=== PATIENT | male | born 1960 | race Caucasian/White ===

== ENCOUNTER → 2022-04-26 | Outpatient (CLI) | payer BC ==
--- NOTE | 2022-04-26 16:34 | CT ---
EXAMINATION TYPE: CT sinus wo con CT DLP: 654.8 mGycm, Automated exposure control for dose reduction was used. DATE OF EXAM: 04/26/2022 12:31 PM COMPARISON: CT facial bones 12/17/2013. CLINICAL INDICATION:Male, 61 years old with history of J32.9 chronic sinusitis, Chronic sinusitis. CONTRAST: None. TECHNIQUE: Multiple thin axial images were obtained through the paranasal sinuses without the use of IV contrast. Additional coronal and sagittal reformatted images were submitted for evaluation. FINDINGS: Frontal sinuses: Normally developed and aerated. Frontal Recess: Patent with minimal mucosal thickeni ng. Modified [place]-Lowell Score: Right 0 = 0% Opacified, Left 0 = 0% Opacified Maxillary Sinuses: Normally developed and aerated. Modified [place]lee Score: Right 0 = 0% Opacified, Left 0 = 0% Opacified Maxillary Infundibula(OMC): Clear, No Eduardo cells identified. Modified Ol[place]-Lowell Score: Right 0 = Completely patent, Left 0 = Completely patent Ethmoid sinuses: Normally developed and aerated. Ethmoidal notch: Unprotected anterior ethmoidal duarte ry bilaterally. Modified [place]-Lowell Score: Anterior Right 1 = 1-25% Opacified, Left 1 = 1-25% Opacified Posterior Right 1 = 1-25% Opacified, Left 1 = 1-25% Opacified Sphenoid sinuses: Normally developed and aerated. There is sellar sphenoid sinus pneumatization witho ut evidence of dehiscence. No dehiscence of carotid canal. No evidence of optic nerve dehiscence wit hin the sphenoid sinus. No evidence of Onodi cells. Sphenoethmoidal recesses: Patent with minimal mu cosal thickening in the left.. Modified [place]-Haylee Score: Right 0 = 0% Opacified, Left 0 = 0% Opacified. Nasal septum: Within normal limits.. Nasal Turbinates: Within normal limits, mild rightward deviation. Mastoid air cells & middle ears: The air cells are clear. The middle ears are grossly unremarkable. Modified Soft tissues & Brain: Partially seen without gross abnormality. Globes are intact. Other: Cribriform plate demonstrates symmetric Keros classification type 2 cribriform plate. No evidence of bony dehiscence of skull base. Lamina papyracea is intact without evidence of remote orbital fracture or orbital prolapse into the e thmoid sinus. IMPRESSION: 1. No significant mucosal sinus disease. 2. The ostiomeatal units, frontonasal and sphenoethmoidal recesses are patent. 3. Opacification burden of 4/54 on the Modified Olga-Lowell scoring system.
== END | disposition home or self-care (01) ==
LOC: RADCTMAIN 12:12
PROVIDERS: ATTEND Otolaryngology
DX: J32.9 Chronic sinusitis, unspecified (principal)
CPT/HCPCS: 70486

== ENCOUNTER → 2022-04-26 | Outpatient (CLI) | payer BC | END | disposition home or self-care (01) | LOC: LABWHC1 12:38 | PROVIDERS: ATTEND Otolaryngology | DX: J30.89 Other allergic rhinitis (principal) | CPT/HCPCS: 36415 ==

== ENCOUNTER → 2022-09-12 | Outpatient (CLI) | payer BC ==
--- NOTE | 2022-09-12 12:31 | P.SLEEP ---
History of Present Illness DATE: 09/12/2022 CONSULTATION/NEW PATIENT EVALUATION HISTORY OF PRESENT ILLNESS/SLEEP-WAKE EVALUATION: 61year old lady gentleman had been evaluated in the sleep center for possible obstructive sleep apnea hypopnea syndrome. Home sleep apnea test which was done several years ago was negative for obstructive sleep apnea hypopnea syndrome. Patient increased his weight on around the 20 pounds since previous sleep test which was done in another institution. SLEEP SCHEDULE: Usually sleep schedule on weekdays from 10 PM until 7 AM, during days off from 10 PM until 8 AM. FALLING ASLEEP: No problems with falling asleep, no TV in bedroom. DURING SLEEP: Patient usually sleeps on the back and side position with loud snoring and awakenings from sleep with nocturia. No history of hypnogogical hallucinations, sleep paralysis, or cataplexy. DURING THE DAY/WAKE STATE: In the morning patient wake up tired, falling asleep during the day. [place] sleepiness scale is 6. He is taking 1 nap around 23 PM. PAST MEDICAL HISTORY: Asthma, prostate CA, depression, sinuses problems and nasal problems. PAST SURGICAL HISTORY: Status post surgical treatment for nasal septum deviation and sinuses problems, prostatectomy in 2018. MEDICATIONS: Flonase, Celexa. SOCIAL HISTORY: Negative for smoking, alcohol consumption occasional. FAMILY HISTORY: Hypertension, heart problems, stroke, snoring, diabetes. REVIEW OF SYSTEMS: Loud snoring, awakenings from sleep, sleepiness during the day. No fevers. No double vision. No recent chest pain. No shortness of breath. No abdominal pain. No bleeding episodes. No blood in urine. No seizure episodes. PHYSICAL EXAMINATION: GENERAL: A pleasant patient without any distress. VITAL SIGNS: BP 133/81 , HR 68 , RR 16 , weight 235.8 pounds, height 5 foot 11- 3/4 inches, body mass index 32.1 . HEENT: PERRLA, EOMI. Evaluation of oropharynx showed tongue protrudes midline, low position of soft palate Mallampati 3, wide pillars. NECK: Supple. No JVD. Thyroid is not palpable. 17 inches in circumference. LUNGS: Clear to percussion and to auscultation. Good air exchange. No wheezing or rhonchi. HEART: S1, S2 regular. No murmurs, gallops or rubs. ABDOMEN: Soft and nontender. Bowel sounds are present. No organomegaly appreciated. EXTREMITIES: No clubbing or cyanosis. BUFF WHEEL FABRICATOR: Awake, alert, and oriented x3. Cranial nerves 2 to 7 intact. There is no fasciculation or atrophy noted. No focal deficits observed. ASSESSMENT: 1. Loud snoring, small oropharyngeal air space, patient take naps afternoon, wide neck 17 inches. Home sleep apnea test in another institution several years ago was negative. Patient increased his weight since that time. Obstructive sleep apnea hypopnea syndrome. 2. Mild obesity. 3 status post the surgery for nasal septum deviation and sinuses problems. 4. History of depression. 5 history of asthma. 6. History of prostate cancer, status post prostatectomy in 2018. PLAN: 1. Polysomnography for evaluation of patient's breathing during sleep. 2. CPAP/BiPAP titration if sleep study confirms obstructive sleep apnea- hypopnea syndrome. 3. Preferable position during sleep on the side. 4. No driving if patient feels any sleepiness. Patient is aware of civil and criminal liability for unsafe driving. 5. Sleep hygiene with regular sleep time for at least 7.5-8 hours. 6. Watching weight. Thank you very much for referring this patient for consultation. Sincerely, Arnel Hampton MD, PhD, FAASM. Diplomat of [place] [employer], Sleep Medicine Board by [place] [employer] [place] [employer] Contract Designer of [facility] [place] Sleep Note - Sleep Note Sleep Note: Temperature: Pulse Rate: Respiratory Rate: Blood Pressure: SpO2: Height: Weight: BMI: Neck Circumference:
== END ==
LOC: SLEEP 11:18
PROVIDERS: ATTEND Internal Medicine
DX: G47.33 Obstructive sleep apnea (adult) (pediatric) (principal); E66.01 Morbid (severe) obesity due to excess calories; F32.A Depression, unspecified; J45.909 Unspecified asthma, uncomplicated; Z85.46 Personal history of malignant neoplasm of prostate; Z90.79 Acquired absence of other genital organ(s); Z99.89 Dependence on other enabling machines and devices
CPT/HCPCS: 99211

== ENCOUNTER → 2023-02-13 | Outpatient (CLI) | payer BC ==
--- NOTE | 2023-02-13 15:25 | P.PN ---
Subjective DATE: 02/13/2023 FOLLOW UP VISIT. Patient with obstructive sleep apnea hypopnea syndrome return to sleep center for follow-up visit. Recently patient had sleep study which documented obstructive sleep apnea hypopnea syndrome. Patient was initiated on PAP therapy and today is first visit after treatment was started. Patient was able to use PAP equipment every night for the whole night. The patient does not have significant problems with the mask, PAP pressure and humidification. [place] sleepiness scale is 5, which is normal. I checked information from PAP unit and explaining to the patient in details. PAP unit pressure 5-17, average 11.6 cm H2O. Usage is 97% and 87 % for more then 4 hours, average 7 hours per night. Leak is 3.6 l/m, which is in acceptable range. Apnea Hypopnea Index is 1.0, which is normal. MEDICATIONS:1. Flonase 2. Celexa During physical exam: GENERAL: A pleasant patient without any distress. VITAL SIGNS: BP 121/68, HR 79, RR 20 , weight 245.6, temperature 98 point, oxygen saturation at room air 96% . HEENT: PERRLA, EOMI.low position of soft palate, Mallapati 3 . NECK: Supple. No JVD. LUNGS: Clear to percussion and to auscultation. Good air exchange. No wheezing or rhonchi. HEART: S1, S2 regular. ABDOMEN: Soft and nontender.[] EXTREMITIES: No clubbing or cyanosis. FAMILY CONSULTANT: Awake, alert, and oriented x3. No focal deficit. Impressions: 1. Obstructive sleep apnea-hypopnea syndrome. Patient demonstrated great compliance with treatment, benefiting from treatment. 2. Mild obesity, patient increased his weight on 10 pounds comparing to the previous visit. 3. History of asthma. 4. History of prostate CA, status post prostatectomy in 2018. 5. Status post surgical treatment for nasal septum deviation and sinuses problems. 6. History of depression. Plan: 1. Continue using PAP equipment every night for the whole night. 2. To change air filter at least 1-2 times per month. 3. PAP unit should stay lower then position of the head. 4. Advised patient to remove all remaining water from humidifier canister daily and make it dry after each usage. Refill canister with fresh distilled water before each usage. 5. Sleep hygiene with regular time in bed for at least 8 hours. 6. Precautions related to driving. No driving if feel any sleepiness. 7. I will maintain prescription for PAP supplies including mask, tube, filters. 8. Follow up visit in 6 months or earlier if patient has any problems. 9. Watching and losing weight. Thank you very much for allowing me to participate in the management of your patient. Arnel Hampton MD, PhD, FAASM. Diplomat of [place] [employer], Sleep Medicine Board by [place] [employer] Medical Insurance Verifier of [facility] [place]
== END | disposition home or self-care (01) ==
LOC: SLEEP 14:04
PROVIDERS: ATTEND Internal Medicine
DX: G47.33 Obstructive sleep apnea (adult) (pediatric) (principal); E66.9 Obesity, unspecified; Z85.46 Personal history of malignant neoplasm of prostate; Z90.79 Acquired absence of other genital organ(s); Z87.09 Personal history of other diseases of the respiratory system; Z98.890 Other specified postprocedural states; Z86.59 Personal history of other mental and behavioral disorders; Z99.89 Dependence on other enabling machines and devices

== ENCOUNTER → 2023-08-28 | Outpatient (CLI) | payer BC ==
--- NOTE | 2023-08-28 17:08 | P.PN ---
Subjective DATE: 08/28/2023 FOLLOW UP VISIT. Patient with obstructive sleep apnea hypopnea syndrome return to sleep center for follow-up visit. Information from previous visit have been reviewed. Patient is using PAP equipment every night for the whole night, getting PAP supplies in time. The patient does not have significant problems with the mask, PAP unit and humidification. [place] sleepiness scale is 2, which is normal. I checked information from PAP unit and discussed it with patient in details. PAP unit pressure 5-17, average 10.9 cm H2O. Usage is 100 % for more then 4 hours, average 8 hours per night. Leak is 5.8 l/m, which is in acceptable range. Apnea Hypopnea Index is 0.8, which is normal. MEDICATIONS:1. Flonase 2. Celexa 10 mg once a day 3. Glucosamine 4. Vitamin C During physical exam: GENERAL: A pleasant patient without any distress. VITAL SIGNS: BP 125/75, HR 72, RR 16 , weight 246.4, temperature 98.0, oxygen saturation at room air 96 % . HEENT: PERRLA, EOMI.low position of soft palate, Mallapati 3 . NECK: Supple. No JVD. LUNGS: Clear to percussion and to auscultation. Good air exchange. No wheezing or rhonchi. HEART: S1, S2 regular. ABDOMEN: Soft and nontender.[] EXTREMITIES: No clubbing or cyanosis. BENDER HAND: Awake, alert, and oriented x3. No focal deficit. Impressions: 1. Obstructive sleep apnea-hypopnea syndrome. Patient demonstrated great compliance with treatment, benefiting from treatment. 2. Mild obesity. 3. History of asthma. 4. Status post prostatectomy in 2018 for prostate cancer. 5. Status post surgical treatment for nasal septum deviation and sinus problems. 6. History of depression. Plan: 1. Continue using PAP equipment every night for the whole night. 2. To change air filter at least 1-2 times per month. 3. PAP unit should stay lower then position of the head. 4. Advised patient to remove all remaining water from humidifier canister daily and make it dry after each usage. Refill canister with fresh distilled water before each usage. 5. Sleep hygiene with regular time in bed for at least 8 hours. 6. Precautions related to driving. No driving if feel any sleepiness. 7. I will maintain prescription for PAP supplies including mask, tube, filters. 8. Watching weight. 9. Follow up visit in 6 months or earlier if patient has any problems. Thank you very much for allowing me to participate in the management of your patient. Arnel Hampton MD, PhD, FAASM. Diplomat of [place] [employer], Sleep Medicine Board by [place] [employer] Fire Patroller of [facility] [place]
== END ==
LOC: 3 N SLEEP 16:30
PROVIDERS: ATTEND Internal Medicine
DX: G47.33 Obstructive sleep apnea (adult) (pediatric) (principal); E66.9 Obesity, unspecified; F32.A Depression, unspecified; J45.909 Unspecified asthma, uncomplicated; Z79.899 Other long term (current) drug therapy; Z85.46 Personal history of malignant neoplasm of prostate; Z90.79 Acquired absence of other genital organ(s); Z98.890 Other specified postprocedural states; Z99.89 Dependence on other enabling machines and devices
CPT/HCPCS: 99212

== ENCOUNTER → 2024-03-25 | Outpatient (CLI) | payer BC ==
--- NOTE | 2024-03-25 17:28 | P.PROGSL ---
Subjective DATE: 03/25/2024 FOLLOW UP VISIT. Patient with obstructive sleep apnea hypopnea syndrome return to sleep center for follow-up visit. Information from previous visit have been reviewed. Patient is using PAP equipment every night for the whole night, getting PAP supplies in time. The patient does not have significant problems with the mask, PAP unit and humidification. [place] sleepiness scale is 4, which is normal. I checked information from PAP unit. PAP unit pressure 5-14, average 10.1 cm H2O. Usage is 97% for more then 4 hours, average 7.5 hours per night. Leak is 1.5 l/m, which is in perfect range. Apnea Hypopnea Index is 0.4, which is normal. MEDICATIONS: Please see below During physical exam: GENERAL: A pleasant patient without any distress. VITAL SIGNS: Please see below, weight 243 pounds, patient lost 3 pounds, BMI 33.8. HEENT: PERRLA, EOMI.low position of soft palate, Mallapati 3 . NECK: Supple. No JVD. LUNGS: Clear to percussion and to auscultation. Good air exchange. No wheezing or rhonchi. HEART: S1, S2 regular. ABDOMEN: Soft and nontender.[] EXTREMITIES: No clubbing or cyanosis. RACECAR DRIVER: Awake, alert, and oriented x3. No focal deficit. Impressions: 1. Obstructive sleep apnea-hypopnea syndrome. Patient demonstrated great compliance with treatment, benefiting from treatment. 2. Mild obesity BMI 33.8, patient lost 3 pounds comparing with previous visit. 3. History of asthma. 4. Status post prostatectomy in 2018 for prostate cancer. 5. History of depression. 6. Status post surgical treatment for nasal septal deviation sinuses problems. Plan: 1. Continue using PAP equipment every night for the whole night. 2. To change air filter at least 1-2 times per month. 3. PAP unit should stay lower then position of the head. 4. Advised patient to remove all remaining water from humidifier canister daily and make it dry after each usage. Refill canister with fresh distilled water before each usage. 5. Sleep hygiene with regular time in bed for at least 8 hours. 6. Precautions related to driving. No driving if feel any sleepiness. 7. I will maintain prescription for PAP supplies including mask, tube, filters. 8. Follow up visit in 6 months or earlier if patient has any problems. 9. Watching and losing weight. Thank you very much for allowing me to participate in the management of your patient. Arnel Hampton MD, PhD, FAASM. Diplomat of [place] [employer], Sleep Medicine Board by [place] [employer] Supervisor of [facility] [place] Objective - Vital Signs Vital Signs: Vital Signs Temp 97.9 F 03/25/24 17:13 Pulse 74 03/25/24 17:13 Resp 16 03/25/24 17:13 BP 146/71 03/25/24 17:13 Pulse Ox 96 03/25/24 17:13 FiO2 Intake & Output 03/24/24 03/25/24 03/25/24 18:59 06:59 18:59 Weight 110.223 kg Home Medications: Home Medications Medication Instructions Recorded Confirmed Type Citalopram Hydrobromide [CeleXA] 10 mg PO DAILY 03/25/24 03/25/24 History Fluticasone Nasal [place] [Flonase See Rx Instructions .ROUTE .COMPLEX 03/25/24 03/25/24 History Nasal [place]]
[2024-03-25 17:39] VITALS: BP 146/71; PULSE 74; RESP 16; TEMP 97.9
== END ==
LOC: 3 N SLEEP 17:10
PROVIDERS: ATTEND Internal Medicine
DX: G47.33 Obstructive sleep apnea (adult) (pediatric) (principal); E66.9 Obesity, unspecified; J45.909 Unspecified asthma, uncomplicated; F32.A Depression, unspecified; Z98.890 Other specified postprocedural states; Z90.79 Acquired absence of other genital organ(s); Z99.89 Dependence on other enabling machines and devices; Z85.46 Personal history of malignant neoplasm of prostate; Z68.33 Body mass index [BMI] 33.0-33.9, adult; Z79.51 Long term (current) use of inhaled steroids
CPT/HCPCS: 99212